=== PATIENT | male | born 1985 | race Caucasian/White ===

== ENCOUNTER 2025-08-01 20:47 | Emergency (ER) | payer SELFPAY ==
[2025-08-01 20:48] VITALS: BP 118/77
[2025-08-01 22:00] VITALS: BMI 24.2
--- NOTE | 2025-08-01 22:50 | ED.GENMED ---
History of Present Illness
<Lexi Lemons DO - Last Filed: 08/02/25 06:35>
General
Chief Complaint: Alcohol Problem
Time Seen by Provider: 08/01/25 22:08
History of Present Illness
History of Present Illness:
40-year-old male with prior history of alcohol abuse presenting for acute alcohol intoxication. Patient arrives by ambulance. Ambulance was allegedly called by mother. Patient on arrival does admit to drinking alcohol, had previously been sober
for 2 years. Does note a lot of social issues, currently unemployed, difficult living situation. Patient had tried to jump out of the ambulance prior to arrival, however notes that he just did not want to come to the hospital. Denies any present
SI or HI. Denies acute medical complaint such as chest pain, difficulty breathing, abdominal pain, fever. Denies additional acute medical complaints
Past History
<Lexi Lemons DO - Last Filed: 08/02/25 06:35>
Past History
ED Past Medical History: Other (Alcohol abuse)
ED Past Surgical History: None
Social History
Tobacco: Smoker
Alcohol: Chronic alcoholic
Drug: None
Personal: Single
Living: with family
Employment: Employed
Family History
Family History: Other (Noncontributory)
Phy Exam
<Lexi Lemons DO - Last Filed: 08/02/25 06:35>
Physical Exam
Physical Exam:
General: Well-appearing, no clinical signs of dehydration, nontoxic and in no acute distress
HEENT: protecting airway
Neck: appears supple
CV: Normal heart rate
Resp: No accessory muscle use, no increased work of breathing
Abd: No distention
Extremities: No deformities, no swelling
Neuro: alert, no focal neurologic deficit
: deferred
Rectal: deferred
Psych: Intoxicated, however answering questions appropriately, cooperative
Skin: Intact
Scores
<Lexi Lemons DO - Last Filed: 08/02/25 06:35>
Withdrawal Assessment of Alcohol
Withdrawal Assessment Completed?: Not applicable
Course
<Lexi Lemons DO - Last Filed: 08/02/25 06:35>
Orders/Labs/Results
Orders:
Orders
08/01/25 23:17
Nicotine [Nicoderm Transdermal] 14 mg TRANSDERM ONCE ONE
Vital Signs
Initial and Last Documented VS:
Initial Vital Signs
Temp Pulse Resp BP Pulse Ox
97.9 F 68 16 118/77 99
08/01/25 20:48 08/01/25 20:48 08/01/25 20:48 08/01/25 20:48 08/01/25 20:48
Last Documented Vital Signs
Temp Pulse Resp BP Pulse Ox
97.9 F 76 22 106/77 98
08/01/25 20:48 08/02/25 08:00 08/02/25 08:00 08/02/25 08:00 08/02/25 08:00
<Jess Spivey MD - Last Filed: 08/02/25 08:51>
Orders/Labs/Results
Orders:
Orders
08/01/25 23:17
Nicotine [Nicoderm Transdermal] 14 mg TRANSDERM ONCE ONE
Vital Signs
Initial and Last Documented VS:
Initial Vital Signs
Temp Pulse Resp BP Pulse Ox
97.9 F 68 16 118/77 99
08/01/25 20:48 08/01/25 20:48 08/01/25 20:48 08/01/25 20:48 08/01/25 20:48
Last Documented Vital Signs
Temp Pulse Resp BP Pulse Ox
97.9 F 76 22 106/77 98
08/01/25 20:48 08/02/25 08:00 08/02/25 08:00 08/02/25 08:00 08/02/25 08:00
<Lexi Lemons DO - Last Filed: 08/02/25 06:35>
MDM/Problems Addressed
MDM/Problems Addressed:
40-year-old male with history of alcohol abuse presenting for alcohol intoxication. Vital signs are normal.
On exam patient is resting comfortably, slightly agitated, however overall cooperative. He is intoxicated, however standing steadily, during questions appropriately. Patient hemodynamically stable. Denies SI or HI. At this time do not feel
patient requires any advanced imaging or any involuntary commitment. Plan to the mother for her to pick him up. Otherwise feel stable for discharge
<Lexi Lemons DO - Last Filed: 08/02/25 06:35>
*Pulse Oximetry
SaO2: 99
Oxygen Mode of Delivery: Room air
Patient hypoxic: no
*Critical Care Note
Total Time (30-74mins, 75-104mins- exclusive of procedures): Not Applicable
<Jess Sipvey MD - Last Filed: 08/02/25 08:51>
Update Note
Update Note:
846 am Pt seen by [facility], pt declines services now and f/u/outreach by [facility] in near future. Wants to go home. He is neuro intact, awake, alert, nl gait and stable for discharge, and asking for transportation to [place] where he lives. I got
a token/Dart schedule to bring bedside,a nd by that time, pt had left department.
ED Attending Note
<Lexi Lemons DO - Last Filed: 08/02/25 06:35>
-
Portions of this chart may have been created with voice recognition software.� Occasional wrong word or��sound alike� substitutions may have occurred due to the inherent limitations of voice recognition software.
Discharge Plan
Departure
Patient Disposition: Home (Routine Discharge)
Date of Disposition: 08/02/25
Time of Disposition: 06:35
Patient with high blood pressure during this ER visit?: No
Condition: Good
Discharge Problem:
Alcohol intoxication
Instructions: Alcohol Use Disorder (DC)
Prescriptions:
No Action
No Current Medications
0
Referrals:
NONE,* [Family Provider, Internal Medicine]
Activity Restrictions/Additional Instructions:
You were seen in the emergency department for alcohol issues
Please follow-up closely with your primary care physician.
Return to the emergency department for any worsening of your symptoms or any thoughts of wanting to hurt yourself or others, or any development of chest pain, difficulty breathing, abdominal pain with persistent vomiting and inability to tolerate
food or liquid by mouth (concern for dehydration), weakness, headache or confusion, fever greater than 100.4, or any additional symptoms that are concerning to you.
Thank you for choosing [facility].
Interventions
Interventions:
*Risk Screen - Suicide Last Done: 08/02/25 06:50
*General Assessment Last Done: 08/01/25 23:10
*Neglect/Abuse Screening Last Done: 08/01/25 21:38
*ED- Fall Risk Assessment Last Done: 08/02/25 05:21
*ED COVID-19 Vaccine History Last Done: 08/01/25 23:10
*ED Influenza Vaccine History Last Done: 08/01/25 23:10
ED- Neurological Assessment Last Done: 08/02/25 07:10
ED-Psychological Assessment Last Done: 08/02/25 07:10
Discharge Date and Time
Print Language: POLISH
[2025-08-01 23:10] VITALS: BP 107/64
[2025-08-01] MEDS: NICODERM TRANSDERMAL 14 MG TRANSDERM (23:56)
[2025-08-02 00:56] VITALS: BP 100/67
[2025-08-02 06:53] VITALS: BP 97/61
[2025-08-02 07:23] VITALS: BP 116/74
[2025-08-02 08:00] VITALS: BP 106/77
--- NOTE | 2025-08-02 12:05 | EDCM ---
I received a call from pt's mother telling me she arranged a ride for him and we should not let him leave the ED. When I spoke to his nurse she told me pt left ED before he was given discharge instructions and he left his hoodie there.
I called his mother and updated her, she will send her other son over to pick and shovel man the talita. Talita left at ED registration desk.
== END 2025-08-02 09:23 | disposition home or self-care (01) ==
LOC: EMR 20:47
PROVIDERS: EMERGENCY PHYSICIAN Student in an Organized Health Care Education/Training Program
DX: F10.129 Alcohol abuse with intoxication, unspecified (principal); F17.200 Nicotine dependence, unspecified, uncomplicated; Z56.0 Unemployment, unspecified
CPT/HCPCS: 99282